=== PATIENT | female | born 1985 | race Caucasian/White ===

== ENCOUNTER 2019-10-01 16:27 | Emergency (ER) | payer BC ==
[~2019-10-01] VITALS: Ht 165.1 cm; Wt 56.2 kg
== END 2019-10-01 23:07 | disposition home or self-care (01) ==
LOC: ER 16:27
DX: K52.9 Noninfective gastroenteritis and colitis, unspecified (principal)

== ENCOUNTER 2021-07-26 19:39 | Emergency (ER) | payer OTHER ==
[~2021-07-26] VITALS: Ht 165.1 cm; Wt 59.9 kg
[2021-07-26] MEDS ORDERED: ZOFRAN (20:58)
[2021-07-26] MEDS ORDERED: PEPCID (20:59)
[2021-07-27] MEDS ORDERED: MACROBID 100 M100 MG PO (00:51)
== END 2021-07-27 02:09 | disposition home or self-care (01) ==
LOC: ER 19:39
DX: O21.0 Mild hyperemesis gravidarum (principal); Z3A.08 8 weeks gestation of pregnancy

== ENCOUNTER 2021-12-01 11:26 | Emergency (ER) | payer OTHER ==
[~2021-12-01] VITALS: Ht 165.1 cm; Wt 71.2 kg
[~2021-12-01 11:26] MED LIST: MACROBID 100 M100 MG PO; PEPCID; ZOFRAN
[2021-12-01] MEDS ORDERED: METRONIDAZOLE500 MG PO (18:04)
[2021-12-01] MEDS ORDERED: ZOFRAN8 MG PO (18:06)
[2021-12-01] MEDS ORDERED: PEPCID AC20 MG PO (18:06)
== END 2021-12-01 18:13 | disposition home or self-care (01) ==
LOC: ER 11:26
DX: O99.612 Diseases of the digestive system complicating pregnancy, second trimester (principal); Z3A.27 27 weeks gestation of pregnancy; K52.9 Noninfective gastroenteritis and colitis, unspecified; R11.0 Nausea; Z20.822 Contact with and (suspected) exposure to COVID-19

== ENCOUNTER 2022-02-19 15:10 | Inpatient (IN) | payer OTHER ==
[~2022-02-19] VITALS: Ht 165.1 cm; Wt 74.8 kg
[~2022-02-19 15:10] MED LIST changes: +METRONIDAZOLE500 MG PO; +PEPCID AC20 MG PO; +ZOFRAN8 MG PO
[2022-02-19] MEDS ORDERED: PRENATAL TABLE1 EAC3 PO (15:52)
[2022-02-20] MEDS ORDERED: HYDROCORTISONE30 G4 (15:26)
== END 2022-02-22 13:29 | disposition home or self-care (01) | DRG 788 ==
LOC: LDR 15:10 → SURG-SUITE 15:10
PROVIDERS: ADMIT Obstetrics & Gynecology Maternal & Fetal Medicine; ATTEND Obstetrics & Gynecology Maternal & Fetal Medicine
PROC: 4A1HXCZ Monitoring of Products of Conception, Cardiac Rate, External Approach (ICD-10-PCS; 2022-02-19)
PROC: 10D00Z1 Extraction of Products of Conception, Low, Open Approach (ICD-10-PCS; principal; 2022-02-19 16:30)
DX: O34.211 Maternal care for low transverse scar from previous cesarean delivery (principal); Z3A.38 38 weeks gestation of pregnancy; Z37.0 Single live birth; Z20.822 Contact with and (suspected) exposure to COVID-19

== ENCOUNTER 2023-11-01 00:32 | Emergency (ER) | payer OTHER ==
[~2023-11-01] VITALS: Ht 165.1 cm; Wt 56.2 kg
[~2023-11-01 00:32] MED LIST changes: +HYDROCORTISONE30 G4; +PRENATAL TABLE1 EAC3 PO
[2023-11-01] MEDS ORDERED: HYOSCYAMINE SULFATE 0.125 MG TAB.SUBL SL STA (02:39)
[2023-11-01] MEDS ORDERED: FAMOTIDINE/PF 20 MG/2 ML VIAL IV PUSH STA (02:39)
[2023-11-01] MEDS ORDERED: LACTOBACILLUS ACIDOPHILUS 1 CAP CAP PO STA (02:40)
[2023-11-01] MEDS ORDERED: 0.9 % SODIUM CHLORIDE 1,000 ML IV ONE (02:45)
[2023-11-01 02:52] LABS: URINE APPEARANCE Clear; URINE BILIRRUBIN Negative (NEGATIVE); URINE BLOOD Negative; URINE COLOR Yellow; URINE GLUCOSE Negative (NEGATIVE); URINE LEUKOCYTE Negative; URINE NITRATE Negative; URINE PROTEIN Negative (NEGATIVE); URINE UROBILINOGEN 0.2 E.U./dl
[2023-11-01 02:55] LABS: URINE BACTERIA 61.7 uL (0.0-1933); URINE RBC 68.1 uL (0.0-20.8); URINE WBC 2.6 uL (0.0-23.2)
[2023-11-01] MEDS ORDERED: ONDANSETRON HCL 2 MG/ML VIAL IV STA (03:13)
[2023-11-01 03:19] LABS: HEMOGLOBIN 12.5 g/dL (12.0-15.00); MEAN CELL VOLUME 90.7 fL (80.00-100.00); MEAN CORPUSCULAR HEMOGLOBIN 31.4 pg (27.00-32.0); MEAN CORPUSCULAR HGB CONC 34.6 g/dl (32.0-36.0); RED BLOOD COUNT 3.97 M/uL (4.00-6.00); RED CELL DISTRIBUTION WIDTH 12.9 % (11.5-14.5)
[2023-11-01 03:23] LABS: URINE EPITHELIAL CELLS 1.3 uL (0.0-38.8)
[2023-11-01 03:23] LABS: PLATELET COUNT 119 K/uL (150-450)
[2023-11-01 03:34] LABS: CALCIUM 8.4 mg/dL (8.5-10.1); CREATININE SERUM 0.67 mg/dL (0.55-1.02); GFR 98.5; POTASSIUM 3.3 mEq/L (3.5-5.1)
[2023-11-01] MEDS ORDERED: MEPERIDINE HCL/PF 25 MG/ML VIAL IM STA (07:32)
== END 2023-11-01 12:36 | disposition home or self-care (01) ==
LOC: ER 00:33
PROVIDERS: General Practice
DX: K52.9 Noninfective gastroenteritis and colitis, unspecified (principal); R10.31 Right lower quadrant pain; Z20.822 Contact with and (suspected) exposure to COVID-19